=== PATIENT | female | born 2005 | race Caucasian/White ===

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

== ENCOUNTER 2023-10-28 07:42 | Observation (INO) | payer BC ==
[2023-10-27 14:56] VITALS: BMI 38.0
[2023-10-28] MEDS ORDERED: Lidocaine 2% PF 5 ML VIAL ONE (09:05)
[2023-10-28] MEDS ORDERED: Bupivacaine PF 0.5% 30 ML VIAL ONE ×2 (09:05→09:25)
[2023-10-28] MEDS ORDERED: EPINEPHrine 1 MG/ML VIAL ONE (09:05)
[2023-10-28] MEDS ORDERED: PROPOFOL 20 ML ONE (09:24)
[2023-10-28] MEDS ORDERED: fentaNYL 50 mcg/mL 1 mL Vial ONE ×5 (09:24→12:45)
[2023-10-28] MEDS ORDERED: Lidocaine 1% PF 5 ML VIAL ONE (09:24)
[2023-10-28 09:25] LABS: #Basophils 0.05 10x3/uL (0.0-0.2); %Basophils 0.5 % (0.0-1.0); %Eosinophils 1.8 % (0.0-10.0); %Lymphocytes 27.9 % (28.0-48.0); %Monocytes 8.6 % (0.0-4.0); %Neutrophils 60.9 % (31.0-61.0); Hematocrit 44.1 % (36.0-47.0); Hemoglobin 14.3 g/dL (12.0-16.0); Mean Corpuscular HGB CONC 32.4 g/dL (32.0-36.0); Mean Corpuscular Hemoglobin 25.1 pg (25.0-35.0); Mean Corpuscular Volume 77.5 fL (78.0-98.0); Mean Platelet Volume 9.7 fL (7.4-10.4); Platelet Count 342 10x3/uL (130-400); RBC Distribution Width 14.2 % (11.5-14.5); Red Blood Cell (RBC) Count 5.69 mill/uL (4.00-5.20)
[2023-10-28] MEDS ORDERED: Midazolam HCl 2 mg/2 ml Vial ONE (09:32)
[2023-10-28 09:53] LABS: BHCG - Serum Negative (NEGATIVE); Pregs Control Background? CLEAR/WHITE (CLR/WHITE); Pregs Control Bar Appear? YES (CONTROL BAR)
[2023-10-28] MEDS ORDERED: traMADol HCl 50 MG TAB PO PRN (10:15)
[2023-10-28] MEDS ORDERED: Promethazine HCl 25 MG/ML VIAL IM PRN ×2 (10:15→12:11)
[2023-10-28] MEDS ORDERED: Ropivacaine 0.2% 550 ML 550 ML NERVE BLCK SCH (10:15)
[2023-10-28] MEDS ORDERED: HYDROcodone/Acetaminophen 5/325 mg Tablet PO PRN (10:15)
[2023-10-28] MEDS ORDERED: Sodium Chloride 0.9% 100 ML ONE (10:16)
[2023-10-28] MEDS ORDERED: CEFAZOLIN 2 GM VIAL ONE (10:16)
[2023-10-28] MEDS ORDERED: Vancomycin (BATCH) 1.5 GM/300 ML BAG ONE (10:16)
[2023-10-28] MEDS ORDERED: Dexamethasone 20 MG/5 ML VIAL ONE (10:47)
[2023-10-28] MEDS ORDERED: Milk Of Magnesia 30 ML UDCUP PO PRN (12:07)
[2023-10-28] MEDS ORDERED: Acetaminophen 500 MG TAB PO PRN (12:07)
[2023-10-28] MEDS ORDERED: Bisacodyl 10 MG SUPP PR PRN (12:07)
[2023-10-28] MEDS ORDERED: HYDROcodone/Acetaminophen 7.5/325 mg Tablet PO PRN ×2 (12:07)
[2023-10-28] MEDS ORDERED: Methocarbamol 500 MG TAB PO PRN (12:07)
[2023-10-28] MEDS ORDERED: diphenhydrAMINE 50 MG CAP PO PRN (12:07)
[2023-10-28] MEDS ORDERED: Ondansetron HCl/PF 4 MG/2 ML Vial IVP PRN (12:11)
[2023-10-28] MEDS: Ketorolac Tromethamine 30 MG (1 mL) VIAL IVP SCH (14:06)
[2023-10-28] MEDS: Dextrose 5 %-0.45 % NaCl 1,000 ML IV SCH (14:14)
[2023-10-28] MEDS: HYDROcodone/Acetaminophen 5/325 mg Tablet PO PRN (14:14)
[2023-10-28] MEDS: CEFAZOLIN 2 GM in Sodium Chloride 0.9% 100 ML IVPB SCH (16:45)
[2023-10-28] MEDS: Famotidine 20 MG TAB PO SCH (20:40)
[2023-10-28] MEDS: Zolpidem Tartrate 5 MG TAB PO PRN (20:43)
[2023-10-29] MEDS: traMADol HCl 50 MG TAB PO PRN (00:22)
[2023-10-29 07:52] VITALS: BP 133/65; TEMP 98.4
[2023-10-29] MEDS: Ondansetron PF 4 MG/2 ML Vial IVP PRN (09:18)
== END 2023-10-29 12:55 | disposition home or self-care (01) ==
LOC: SDC 07:42 → SJJU 13:39
PROVIDERS: ADMIT Orthopaedic Surgery; ATTEND Orthopaedic Surgery
PROC: 0SCC4ZZ Extirpation of Matter from Right Knee Joint, Percutaneous Endoscopic Approach (ICD-10-PCS; principal; 2023-10-29)
PROC: 0SUC0KZ Supplement Right Knee Joint with Nonautologous Tissue Substitute, Open Approach (ICD-10-PCS; 2023-10-29)
DX: M93.261 Osteochondritis dissecans, right knee (principal); D64.9 Anemia, unspecified; Z98.890 Other specified postprocedural states
CPT/HCPCS: 84703; 85025; A4306; J0171; J0665; J1100; J1885; J2001; J2250; J2405; J2704; J2795; J3010; J3370; J7042